=== PATIENT | female | born 1980 | race Asian ===

== ENCOUNTER → 2017-08-02 | Outpatient (CLI) | payer OTHER | LOC: FIMAGING 13:17 | PROVIDERS: ATTEND Advanced Practice Midwife | DX: O09.522 Supervision of elderly multigravida, second trimester (principal); O34.219 Maternal care for unspecified type scar from previous cesarean delivery; Z3A.23 23 weeks gestation of pregnancy ==

== ENCOUNTER 2017-11-21 05:22 | Inpatient (IN) | payer OTHER ==
--- NOTE | 2017-11-14 18:39 | PDGENHP ---
History and Physical - Chief Complaint Desires elective repeat section and removal of both Fallopian tube - History of Present Illness 37 year old who will be 39w4d on 11/21/17, by 7w3d ultrasound (no menses ), desires elective repeat section and bilateral salpingectomy - for cancer risk reduction and undesired further fertility. Is having a girl, and has a boy at home. 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 She has received care with the [facility] until 20 weeks, when she transferred care to [facility]. No vag bleeding, no leakage of fluid, no ssx PIH. Manager Scheduling = Dr. Jimenez. Her course was complicated by: AMA - had nl NIPT (XX), and MFM US at 23 w5d - ant placenta, no markers for abnl placentation Hx of a prior C/S, less than 2 years ago: at [facility], with Dr. Hernández, for intolerance of labor, 7#6oz male at 41 weeks after 22 hours labor, 01/2016 labs: 12.2/36.4 plt 227 O pos Ab scre neg RPR-NR Rub Imm HBsAG neg HIV neg CF carrier screen neg pap neg 05/08 GC neg / AFP neg Panorama NIPT neg 28w: 11.7 / 35.3 1 hr GTT 101 36w: GBS neg History Information - Allergies/Home Medication List Allergies/Adverse Reactions: No Known Allergies Allergy (Unverified 02/16/16 14:58) Home Medications: IRON,CARBONYL [IRON] 1 tab PO DAILY 02/16/16 [Last Taken Unknown] Vit27&Calcium/Iron/FA [] 1 each PO DAILY 02/16/16 [Last Taken Unknown] I have personally reviewed and updated: family history, medical history, social history, surgical history Past Medical History: nothing significant - Past Medical History no pertinent PMH - Surgical History Additional surgical history: 01/2016 primary low transverse - Family History Additional family history: Father - renal disease, had kidney transplant. Mother - thyroid disorder - Social History Smoking Status: Never smoked Alcohol Use: None Drug Use: None Additional social history: to [place] - He works at [facility]. Review of Systems Review of Systems: ROS: 10pt was reviewed & negative except for what was stated in HPI & below Physical Exam Physical Exam: gen - pleasant gravid female, NAD abd - gravid, fundus firm, NT, FH = 39 FHR = 140 SVE - closed, long, high cervix wt 140lb BP 96/68 Urine dip - neg prot, neg gluc FHR 140 Constitutional: no apparent distress Eyes: PERRL Ears, Nose, Mouth, Throat: moist mucous membranes, hearing normal Cardiovascular: regular rate and rhythym Respiratory: no respiratory distress Gastrointestinal: normoactive bowel sounds Skin: warm, normal color Musculoskeletal: full muscle strength Neurologic: AAOx3 Psychiatric: interacting appropriately Lymph, Heme, Immunologic: no cervical LAD, no supraclavicular LAD Assessment & Plan Assessment: 37 yo at 38w4d today, scheduled for repeat C/S and bilateral salpingectomy at 39w4d on 11/21/17. AMA - neg NIPT, nl MFM US GBS neg Desires cancer risk reduction surgery and is done with childbearing. Plan: Written informed consent obtained. Will proceed with R-C/S and bilateral salpingectomy on 11/21/17 as scheduled, unless labors prior. Suzi Rees MD, FACOG
[2017-11-21] MEDS ORDERED: CITRIC ACID/SODIUM CITRATE 30 ML UDCUP PO ONE (06:00)
[2017-11-21] MEDS ORDERED: LR 500 ML IV ONE (06:00)
[2017-11-21] MEDS ORDERED: LR 1,000 ML IV SCH (06:00)
[2017-11-21] MEDS ORDERED: ceFAZolin 2 GM/SWFI 2 GM/20 ML SYR IVP ONE (06:00)
[2017-11-21 06:11] LABS: PLATELET COUNT 221 10^3/uL (150-400)
--- NOTE | 2017-11-21 07:22 | PDANEPAE ---
ANE History of Present Illness Repeat ANE Past Medical History - Pulmonary History Hx Sleep Apnea: No Sleep Apnea Screening Result - Last Documented: Negative - Chronic Pain History Chronic Pain: No ANE Review of Systems Review of Systems: ANE Patient History - Allergies Allergies/Adverse Reactions: No Known Allergies Allergy (Unverified 02/16/16 14:58) - Home Medications Home medications: home medication list seen and reviewed Home Medications: IRON,CARBONYL [IRON] 1 tab PO DAILY 02/16/16 [Last Taken Unknown] Vit27&Calcium/Iron/FA [] 1 each PO DAILY 02/16/16 [Last Taken Unknown] - NPO status NPO Since - Liquids (Date): 11/20/17 NPO Since - Liquids (Time): 22:00 NPO Since - Solids (Date): 11/20/14 NPO Since - Solids (Time): 20:00 - Anes Hx Anes Hx: no prior problems (Epidural without diff) - Smoking Hx Smoking Status: Never smoked - Alcohol Use Alcohol Use: None ANE Labs/Vital Signs - Labs Result Diagrams: 11/21/17 05:45 - Vital Signs Blood Pressure: 107/75 Heart Rate: 78 Height: 157.48 cm Weight: 63.503 kg ANE Physical Exam - Airway Neck exam: FROM Mallampati Score: Class 1 Mouth exam: normal dental/mouth exam - Pulmonary Pulmonary: no respiratory distress - Cardiovascular Cardiovascular: regular rate and rhythym - ASA Status ASA Status: II ANE Anesthesia Plan Anesthesia Plan: spinal
[2017-11-21] MEDS ORDERED: morphINE PF 5 MG/10 ML INJ ONE (07:27)
--- NOTE | 2017-11-21 07:37 | PDHPUP ---
History & Physical Update H&P update statement: This history and physical update is based on an assessment of the patient which was completed after admission or registration (within 24 hours), but prior to the surgery/procedure. H&P update: H&P reviewed & patient examined, no change in patient's condition since H&P completed
[2017-11-21] MEDS ORDERED: OXYTOCIN 100 UNITS/10 ML VIAL ONE (08:04)
[2017-11-21] MEDS ORDERED: ONDANSETRON 4 MG/2 ML VIAL IVP PRN (08:25)
[2017-11-21] MEDS ORDERED: NALOXONE HCL 0.4 MG/ML INJ IVP PRN (08:25)
[2017-11-21] MEDS ORDERED: fentaNYL 100 MCG/2 ML INJ IVP PRN (08:25)
[2017-11-21] MEDS ORDERED: PROMETHAZINE HCL 25 MG/ML INJ IVP PRN (09:12)
[2017-11-21] MEDS ORDERED: SIMETHICONE 80 MG TAB CHEW PO PRN (09:12)
[2017-11-21] MEDS ORDERED: ACETAMINOPHEN 325 MG TAB PO PRN (09:12)
[2017-11-21] MEDS ORDERED: KETOROLAC 30 MG/1 ML SDV ONE (09:15)
[2017-11-21] MEDS ORDERED: MAGNESIUM HYDROXIDE 30 ML UDCUP PO PRN (09:24)
[2017-11-21] MEDS ORDERED: BISACODYL 10 MG SUPP PR PRN (09:24)
[2017-11-21] MEDS ORDERED: LACTULOSE 20 GM/30 ML UDCUP PO PRN (09:24)
[2017-11-21] MEDS ORDERED: POLYETHYLENE GLYCOL 3350 17 GM PKT PO PRN (09:24)
--- NOTE | 2017-11-21 09:24 | POSTANESTH ---
Post Anesthetic Evaluation Cardiovascular Status: Similar to Pre-Op Cond Respiratory Status: Similar to Pre-op Cond. Level of Consciousness/Mental Status: Can Participate in Eval Pain Control: Adequate, Prn Tx Ordered Nausea/Vomiting Control: Adequate, Prn Tx Ordered Complications Possibly Related to Anesthesia: None Noted
--- NOTE | 2017-11-21 09:43 | POSTOPPROG ---
Post Op Note Date of Operation: 11/21/17 Surgeon: Suzi Rees Adjunct Faculty Mathematics Department: JEROMY White, needed for adequate exposure and retraction Anesthesiologist: Paul Louis MD Anesthesia: Spinal Pre-op Diagnosis: elective repeat section, undesired fertility, cancer risk reductio Post-op Diagnosis: same Indication: desires repeat section, infertility and cancer risk reduction Procedure: Repeat elective section, bilateral salpingectomy Findings: Normal appearing uterus, tubes, and ovaries, female Inf/Abcess present in the surg proc area at time of surgery?: No EBL: 500-1000 (700) Total fluids administered: 2400 Complications: none
--- NOTE | 2017-11-21 10:25 | GOP ---
[f rep st] OPERATIVE REPORT DATE OF OPERATION: 11/21/2017 SURGEON: Suzi Rees MD ELECTRICAL PROSPECTING ENGINEER: JEROMY White, needed for adequate exposure and retraction. ANESTHESIA: Spinal. ANESTHESIOLOGIST: Paul Louis MD. PREOPERATIVE DIAGNOSIS: 1. Elective repeat section. 2. Undesired fertility. 3. Onco risk reduction. 4. Intrauterine at 39 weeks and 4 days. 5. Keloid scar. POSTOPERATIVE DIAGNOSIS: 1. Elective repeat section. 2. Undesired fertility. 3. Onco risk reduction. 4. Intrauterine at 39 weeks and 4 days. 5. Keloid scar. PROCEDURE PERFORMED: 1. Elective repeat section. 2. Bilateral salpingectomy. 3. Excision of keloid scar. FINDINGS: Normal appearing uterus, tubes and ovaries. Some adhesions of left tube to colon epiploica. Delivery of female , Apgars 9 & 9, 3100gm. ESTIMATED BLOOD LOSS: 700 cc. INDICATIONS: 37-year-old 2, para 1 who is at 39 weeks and 4 days with history of a prior section. She desires an elective repeat section. She also desires bilateral salpingectomy for cancer risk reduction and undesired further fertility. Her course was uncomplicated. DESCRIPTION OF PROCEDURE: Written informed consent was again reviewed with the patient. It had been previously obtained in the office. No significant changes were noted since the history and physical exam which was done in the office. She was taken to the operating room where a spinal anesthetic was placed by Dr. Louis. She was then placed in the dorsal supine position. A Watkins catheter was placed sterilely. heart tones were at 140. Her abdomen was sterilely prepped and draped in the standard fashion. A time-out was performed. She was given 2 g of Ancef in the preop area. An incision was made on the inferior aspect of her keloid scar. A second incision was made on the superior aspect. The keloid scar was then excised. The skin incision was then taken down sharply to the fascia. The fascial incision was extended laterally using the scissors. Jose clamps were used to elevate the upper aspect of the fascial incision which was then sharply and bluntly dissected away from the underlying rectus muscles. This was repeated on the inferior aspect of the incision. The rectus muscles were then in the midline. The peritoneum was grasped and entered bluntly. This opening was extended in a blunt fashion. There were no underlying adhesions of the uterus to the anterior abdominal wall noted. A bladder blade was inserted and the Rich retractor was used to elevate the superior aspect of the incision. The hysterotomy was made sharply with the knife and taken down until the release of clear fluid. The hysterotomy was extended laterally using the bandage scissors. The vertex was then cupped and elevated and with the use of fundal pressure was delivered through the incision without incident. One nuchal cord was reduced. Fundal pressure helped to deliver the rest of the body. Cord clamping was delayed for 1 minute. During this time, the was bulb suctioned and wiped dry. The cord was then clamped and cut, and the was handed to the waiting nurse practitioner. A cord segment was obtained which was later discarded. Cord blood was also obtained. The uterus was massaged and the placenta was delivered. Laps were used to remove some remaining sticky segments of membranes from inside the uterus. This was repeated to ensure complete removal. The hysterotomy was then repaired with 0 Monocryl in a running locked fashion. A second imbricating layer was then performed and a few [id number] stitches with 0 Vicryl were used to obtain excellent hemostasis. Attention was then turned to the tubes. The left tube had a few adhesions of the fimbriated end to the surrounding bowel. This was taken down sharply. The left tube was then excised using cautery. Ties were used around the vascular areas of the mesosalpinx. This was repeated on the right side although there were no adhesions noted on the right side. Excellent hemostasis of both tubal operating sites was noted. Attention was turned back to the hysterotomy. The uterus was replaced into the abdomen. Sloppy wet laps were used for irrigation of the posterior cul-de-sac. There was some oozing noted at the hysterotomy site. Cautery was used followed by the application of Tate in order to obtain excellent hemostasis. The fascia was then closed with 0 PDS. The Angela's fascia was then closed with 3-0 Monocryl in a running fashion. The skin was then closed with 4-0 Monocryl in a running subcuticular fashion. The incision was covered with Steri-Strips followed by a dressing. The patient tolerated the procedure well. She was taken to the recovery room in stable condition. Apgars of the female were 9 and 9. The weight of the baby was 3100 g. IV FLUIDS: 2400 cc. URINE OUTPUT: 300 cc, which was clear at the end of the procedure. COMPLICATIONS: None. /[id number]/MODL MTDD
[2017-11-21] MEDS: KETOROLAC 30 MG/1 ML SDV IVP SCH ×2 (15:52→22:32)
[2017-11-21] MEDS: IBUPROFEN 200 MG TAB PO SCH ×2 (18:38→22:30)
[2017-11-21] MEDS: SENNOSIDES/DOCUSATE SODIUM TAB PO SCH (22:43)
[2017-11-22] MEDS: IBUPROFEN 200 MG TAB PO SCH ×5 (03:18→23:54)
[2017-11-22] MEDS: KETOROLAC 30 MG/1 ML SDV IVP SCH (05:51)
[2017-11-22] MEDS: SENNOSIDES/DOCUSATE SODIUM TAB PO SCH ×2 (08:58→23:54)
--- NOTE | 2017-11-22 20:04 | OBPP ---
Progress Note Assessment/Plan: Assessment: [id number] s/p repeat c/s POD#1 Plan: routine post op care ambulate PRN cont to breastfeed, work with PRN plan to d/c home in 24-48hrs Subjective/ Course: 11/22/17 20:09 Pt doing well, denies any pain or heavy bleeding. She is ambulating and voiding without difficulty. She is . Her parents present at , supportive. Objective: 11/22/17 06:12 Patient ABO/Rh O POSITIVE 11/21/17 05:45 Temp Pulse Resp BP Pulse Ox 36.8 C 81 16 99/66 L 95 11/22/17 16:10 11/22/17 16:10 11/22/17 16:10 11/22/17 16:10 11/22/17 16:10 Uterine Position/Fundal Height: Umbilicus -2, Midline Uterine Tone: Firm Physical Exam - Physical Exam General Appearance: WD/WN, alert, no apparent distress Neck: supple Respiratory: lungs clear, normal breath sounds Cardiac/Chest: regular rate, rhythm Abdomen: non-tender, soft, incision (clean/dry/intact- ok to remove now) Extremities: pedal edema Skin: normal color, warm/dry Neuro/Psych: alert, normal mood/affect, oriented x 3
[2017-11-23] MEDS: IBUPROFEN 200 MG TAB PO SCH ×2 (06:01→14:06)
[2017-11-23 11:38] VITALS: BP 111/65
--- NOTE | 2017-11-23 11:54 | OBPP ---
Progress Note Assessment/Plan: Assessment: Plan: Subjective/ Course: 11/22/17 20:09 Pt doing well, denies any pain or heavy bleeding. She is ambulating and voiding without difficulty. She is . Her parents present at , supportive. Objective: 11/22/17 06:12 Patient ABO/Rh O POSITIVE 11/21/17 05:45 Temp Pulse Resp BP Pulse Ox 36.8 C 75 14 111/65 97 11/23/17 09:00 11/23/17 09:00 11/23/17 09:00 11/23/17 09:00 11/23/17 09:00
--- NOTE | 2017-11-23 11:57 | OBGCSDC ---
General Delivery Information - General Info : 2 Para: 2 Abortions: 0 L&D Analgesia/Anesthesia Type: Spinal Admission Date: 11/21/17 Labs: Patient ABO/Rh O POSITIVE 11/21/17 05:45 Hct 33.8 % (38.0-47.0) L 11/22/17 06:12 - Hospital Course : 11/22/17 20:09 Pt doing well, denies any pain or heavy bleeding. She is ambulating and voiding without difficulty. She is . Her parents present at BS, supportive. - Delivery Providers Surgeon: Suzi Rees Data FRANKLYN: 11/24/17 Gestational Age: 39 week(s) and 6 day(s) [place] Delivery Date: 11/21/17 Delivery Time: 08:12 Sex of Infant: Female Weight (gm): 3100 kg Score (1 Min): 8 Score (5 Min): 9
== END 2017-11-23 15:40 | disposition home or self-care (01) | DRG 766 ==
LOC: FLD 05:22 → FOB 11:06
PROVIDERS: ADMIT Obstetrics & Gynecology; ATTEND Obstetrics & Gynecology
PROC: 0UB70ZZ Excision of Bilateral Fallopian Tubes, Open Approach (ICD-10-PCS; principal; 2017-11-21)
PROC: 10D00Z1 Extraction of Products of Conception, Low, Open Approach (ICD-10-PCS; principal; 2017-11-21)
DX: O34.211 Maternal care for low transverse scar from previous cesarean delivery (principal); O99.72 Diseases of the skin and subcutaneous tissue complicating childbirth; L91.0 Hypertrophic scar; Z3A.39 39 weeks gestation of pregnancy; Z37.0 Single live birth; Z30.2 Encounter for sterilization
CPT/HCPCS: J0690; J1885; J2274; J2590